=== PATIENT | male | born 1990 | race Hispanic/Latino ===

== ENCOUNTER 2022-11-20 14:51 | Emergency (ER) | payer OTHER ==
[2022-11-20] MEDS ORDERED: Lidocaine 1% (PF) 30 ML VIAL ONE (15:21)
[2022-11-20] MEDS ORDERED: Boostrix 0.5 ML (Tdap) VIAL (>/=7 yrs of age) ONE (16:11)
== END 2022-11-20 16:45 | disposition home or self-care (01) ==
LOC: MADERS 14:51
DX: S01.312A Laceration without foreign body of left ear, initial encounter (principal); Z23 Encounter for immunization; W26.9XXA Contact with unspecified sharp object(s), initial encounter
CPT/HCPCS: 12014; 90471; 90715; J2001

== ENCOUNTER 2022-11-27 08:40 | Emergency (ER) | payer SELFPAY | END 2022-11-27 09:05 | disposition home or self-care (01) | LOC: MADERS 08:40 | DX: S01.312D Laceration without foreign body of left ear, subsequent encounter (principal); X58.XXXD Exposure to other specified factors, subsequent encounter ==